=== PATIENT | male | born 1970 | race Two or more races ===

== ENCOUNTER 2019-01-13 12:30 | Day surgery (SDC) | payer BC, OTHER ==
[~2019-01-13] VITALS: Ht 172.7 cm; Wt 85.2 kg
[~2019-01-13 12:30] MED LIST: EXCEDRIN
[2019-01-13 13:17] VITALS: Ht 172.7 cm; Wt 85.2 kg
[2019-01-13 13:38] VITALS: BP 121/76; PULSE 85; RESP 18
[2019-01-13] MEDS ORDERED: PROPOFOL 60 ML ONE (14:30)
[2019-01-13] MEDS ORDERED: LIDOCAINE 2% (SDV) 5 ML INJ ONE (14:30)
[2019-01-13 15:17] VITALS: BP 104/58; PULSE 82; RESP 18
[2019-01-13 15:35] VITALS: BP 116/68; PULSE 76; RESP 22
== END 2019-01-13 16:09 | disposition home or self-care (01) ==
LOC: GIL 12:30
PROVIDERS: ATTEND Internal Medicine Gastroenterology
DX: D12.5 Benign neoplasm of sigmoid colon (principal); D12.8 Benign neoplasm of rectum; K64.8 Other hemorrhoids; D12.3 Benign neoplasm of transverse colon
CPT/HCPCS: 45380; 45385; 88305; Z7610